=== PATIENT | female | born 2000 | race African-American/Black ===

== ENCOUNTER 2021-01-15 21:28 | Emergency (ER) | payer MEDICAID ==
[~2021-01-15] VITALS: Ht 165.1 cm; Wt 67.0 kg
[2021-01-15] MEDS ORDERED: IBUPROFEN 600MG TABLET PO ONE (22:30)
[2021-01-15] MEDS ORDERED: IBUP-2029 MT (23:23)
[2021-01-15 23:30] VITALS: BP 127/75
== END 2021-01-15 23:30 | disposition home or self-care (01) ==
LOC: ER 21:28
DX: M79.675 Pain in left toe(s) (principal); Z90.49 Acquired absence of other specified parts of digestive tract
CPT/HCPCS: 11740; 73630; 99284; Z7610; 99283